=== PATIENT | female | born 1950 | race Caucasian/White ===

== ENCOUNTER 2016-06-17 17:43 | Emergency (ER) | payer OTHER ==
[~2016-06-17] VITALS: Ht 165.1 cm; Wt 99.0 kg
[~2016-06-17 17:43] MED LIST: FEXO60TA20 PO; MONT10TA21 PO; VIGA LEFT EYE
[2016-06-17 17:59] VITALS: Ht 165.1 cm; Wt 99.0 kg
[2016-06-17] MEDS ORDERED: CETI10CA PO (18:54)
[2016-06-17] MEDS ORDERED: NAPH15DR22 BOTH EYES (18:54)
[2016-06-17] MEDS ORDERED: VIGA BOTH EYES (18:54)
--- NOTE | 2016-06-17 19:08 | ERD ---
ER Documentation Chief Complaint Date/Time DATE: 06/17/16 TIME: 19:05 Chief Complaint Complains of bilateral eye pain with redness x 3 days HPI 66 yo female presents here in the ER for complaints of bilateral eye redness and itching for 3 days now, patient was seen previously by another doctor, was given polymyxin to help with acute bacterial infection in the eye with only mild relief. Patient complaining of itching, denies any changes in vision. Patient is complaining of redness in both eyes. Patient's complaining of bilateral eye pain and burning pain 4/and scale, accompanied with itching and the purulent discharge that comes from her eyes. Patient denies any trauma in the eye. Patient denies any foreign body sensation in the eye. ROS All systems reviewed and are negative except as per history of present illness. Medications Home Meds Active Scripts Naphazoline-Pheniramine* (Visine-A*) 15 Ml Drops, 2 DROP BOTH EYES Q4H Y for RED EYES, #1 BOT Prov:ADIS RAZO GLOVE CUFFER 06/17/16 Cetirizine Hcl* (Zyrtec*) 10 Mg Capsule, 10 MG PO DAILY, #30 TAB.CHEW Prov:ADIS RAZO GLOVE CUFFER 06/17/16 Moxifloxacin Hcl* (Vigamox*) 0.5% - 3 Ml Opht, 1 DROP BOTH EYES TID for 7 Days, EA Prov:ADIS RAZO. GLOVE CUFFER 06/17/16 Moxifloxacin Hcl* (Vigamox*) 0.5% - 3 Ml Opht, 1 DROP LEFT EYE TID for 7 Days, EA Prov:ROLANDO BRITT PA-C 12/02/14 Montelukast Sodium* (Singulair*) 10 Mg Tablet, 10 MG PO HS, #20 TAB Prov:GABY MCFADDEN DO 09/18/14 Fexofenadine Hcl* (Trang*) 60 Mg Tablet, 60 MG PO BID, #30 TAB Prov:GABY MCFADDEN DO 09/18/14 Allergies Allergies: Coded Allergies: No Known Allergy (Unverified , 12/02/14) PMhx/Soc History of Surgery: Yes (C SECTIONS) Anesthesia Reaction: No Hx Neurological Disorder: No Hx Respiratory Disorders: No Hx Cardiac Disorders: Yes (HTN, HIGH CHOL) Hx Psychiatric Problems: No Hx Miscellaneous Medical Probl: No Hx Alcohol Use: No Hx Substance Use: No Hx Tobacco Use: No FmHx Family History: No coronary disease, No diabetes, No other Physical Exam Vitals Vital Signs Date Time Temp Pulse Resp B/P Pulse Ox O2 Delivery O2 Flow Rate FiO2 06/17/16 17:59 98.3 62 20 153/70 98 Physical Exam GENERAL: The patient is well developed and appropriate for usual state of health, in no apparent distress. HEENT: Atraumatic. Bilateral conjunctiva noted to be injected erythematous with purulent discharge coming out from both eyes. Bilateral eyes are PERRL eat and intact. Ears: Normal tympanic membrane, no erythema or bulging. No ear canal swelling. No ear discharge. Nose: normal nasal turbinates, no erythema or swelling. Normal nasal discharge. Throat: oropharynx clear. No tonsillar swelling or tonsillar exudates. No lymphadenopathy. CHEST: Clear to auscultation bilaterally. There are no rales, wheezes or rhonchi. HEART: Regular rate and rhythm. No murmurs, clicks, rubs or gallops. No S3 or S4. ABDOMEN: Soft, nontender and nondistended. Good bowel sounds. No rebound or guarding. No gross peritonitis. No gross organomegaly or masses. No Mckeon sign or McBurney point tenderness. BACK: No midline or flank tenderness. EXTREMITIES: Equal pulses bilaterally. There is no peripheral clubbing, cyanosis or edema. No focal swelling or erythema. Full range of motion. Grossly neurovascularly intact. NEURO: Alert and oriented. Cranial nerves 2-12 intact. Motor strength in all 4 extremities with 5/5 strength. Sensation grossly intact. Normal speech and gait. SKIN: There is no apparent rash or petechia. The skin is warm and dry. HEMATOLOGIC AND LYMPHATIC: There is no evidence of excessive bruising or lymphedema. No gross cervical, axillary, or inguinal lymphadenopathy. Procedures/MDM David decision making: Patient symptoms like is consistent with bacterial conjunctivitis, can be allergic conjunctivitis at first. Patient was on vomiting , not helping, will change antibiotics to Vigamox, will place patient on Naphcon ophthalmic solution and Zyrtec to help with itching. There is low suspicion for retinal detachment, do. No glaucoma, herpes simplest virus, foreign body, or any other eye emergencies at this time. Patient was advised to see eye doctor within 1-2 days, patient was advised to return for any vision changes, high fever, worsening pain, or any other worsening symptoms. Departure Diagnosis: Primary Impression: Acute bacterial conjunctivitis of both eyes Condition: Stable Patient Instructions: Conjunctivitis Caused by Infection, Conjunctivitis, Allergic Referrals: [facility] Hours: Mon - Fri 9:00 AM - 5:00 PM Additional Instructions: see eye doctor in 2-3 days ADIS RAZO NP June 17, 2016 19:08
== END 2016-06-17 18:55 | disposition home or self-care (01) ==
LOC: E/R 17:43
DX: H10.023 Other mucopurulent conjunctivitis, bilateral (principal); I10 Essential (primary) hypertension
CPT/HCPCS: 99283